=== PATIENT | female | born 1960 | race Caucasian/White ===

== ENCOUNTER 2019-05-15 08:00 | Outpatient (CLI) | payer OTHER ==
[~2019-05-15] VITALS: Ht 165.1 cm; Wt 106.4 kg
[2019-05-15] MEDS ORDERED: MULT-520 PO (08:48)
[2019-05-15] MEDS ORDERED: HYDR25TA6 PO (08:48)
[2019-05-15] MEDS ORDERED: CETI-158 PO (08:48)
[2019-05-15] MEDS ORDERED: CHOL500015 PO (08:48)
[2019-05-15] MEDS ORDERED: ENAL20TA PO (08:48)
[2019-05-15 09:26] LABS: ALANINE AMINOTRANSFERASE 31 U/L (12-78); ANION GAP 9 mmol/L (5-15); CALCIUM 9.1 mg/dL (8.5-10.1); CHLORIDE 101 mmol/L (98-107); CREATININE 0.86 mg/dL (0.55-1.02)
[2019-05-15 09:28] LABS: ALKALINE PHOSPHATASE 126 U/L (45-117); BILIRUBIN,TOTAL 0.5 mg/dL (0.2-1.0); TOTAL PROTEIN 7.5 g/dL (6.4-8.2)
== END 2019-05-15 23:59 | disposition home or self-care (01) ==
LOC: OR 08:00 → EDSTATUS 05-18 08:30
PROVIDERS: ATTEND Orthopaedic Surgery
DX: Z01.818 Encounter for other preprocedural examination (principal); M17.11 Unilateral primary osteoarthritis, right knee
CPT/HCPCS: 36415; 80053; 87081; 87147; 93005